=== PATIENT | female | born 1950 | race Hispanic/Latino ===

== ENCOUNTER 2021-08-19 17:13 | Observation (INO) | payer MEDICARE ==
[~2021-08-19] VITALS: Ht 170.2 cm; Wt 121.6 kg
[2021-08-19 18:08] LABS: BASOPHILS % 0.4 % (0.0-1.0); EOSINOPHILS # (AUTO) 0.1 (0.0-0.4); EOSINOPHILS % 1.4 % (0.0-6.0); HEMATOCRIT 43.7 % (34.2-44.1); HEMOGLOBIN 14.4 g/dL (12.0-16.0); LYMPHOCYTES # (AUTO) 1.7 (1.0-3.2); LYMPHOCYTES % 23.4 % (18.0-39.1); MEAN CORPUSCULAR HEMOGLOBIN 30.2 pg (28-32); MEAN CORPUSCULAR VOLUME 91.6 fL (81-99); MONOCYTES # (AUTO) 0.3 (0.2-0.8); MONOCYTES % 3.6 % (4.4-11.3); NEUTROPHILS # (AUTO) 5.1 (2.1-6.9); NEUTROPHILS % 70.6 % (38.7-80.0); PLATELET COUNT 204 x10e3/uL (140-360); RED BLOOD COUNT 4.77 x10e6/uL (3.6-5.1)
[2021-08-19 18:17] LABS: ALBUMIN 3.8 g/dL (3.5-5.0); ALBUMIN/GLOBULIN RATIO 0.9 (0.8-2.0); CALCIUM 9.3 mg/dL (8.4-10.2); CREATININE, SERUM 0.84 mg/dL (0.57-1.11)
[2021-08-19 18:24] LABS: CREATINE KINASE MB 1.5 ng/mL (0-5.0)
[2021-08-19] MEDS ORDERED: Morphine 4mg INJECTION 4 MG/ML INJ IV PRN (19:45)
[2021-08-19] MEDS ORDERED: DEXTROSE 50% SYRINGE 50 ML IV PRN (19:45)
[2021-08-19] MEDS ORDERED: ONDANSETRON HCL INJ 2MG/ML 2ML 2 MG/ML VIAL IV PRN (19:45)
[2021-08-19] MEDS: INSULIN REGULAR, HUMAN 100 UNIT/1 ML SQ SCH (21:00)
[2021-08-19 22:13] VITALS: BP 160/78
[2021-08-19 22:18] VITALS: BP 160/78
[2021-08-19] MEDS ORDERED: SYNTHROID125 MCG PO (22:55)
[2021-08-19] MEDS ORDERED: METFORMIN HCL500 MG PO (22:55)
[2021-08-19] MEDS ORDERED: LISINOPRIL-HCT1 EACH PO (22:55)
[2021-08-19] MEDS ORDERED: GLIMEPIRIDE2 MG PO (22:55)
[2021-08-20 00:21] VITALS: BP 164/81
[2021-08-20 02:52] LABS: CREATINE KINASE 65 IU/L (29-168)
[2021-08-20 04:00] VITALS: BP 158/77
[2021-08-20 07:18] VITALS: BP 158/77
[2021-08-20] MEDS: INSULIN REGULAR, HUMAN 100 UNIT/1 ML SQ SCH ×3 (07:30→16:30)
[2021-08-20 09:00] VITALS: BP 158/77
[2021-08-20] MEDS ORDERED: ASPIRIN 81 MG ENTERIC COATED PO SCH (09:00)
[2021-08-20] MEDS ORDERED: HYDRALAZINE HCL 20 MG/ML VIAL IV PRN (10:15)
[2021-08-20] MEDS ORDERED: HYDROCHLOROTHIAZIDE 25 MG TAB PO SCH (10:15)
[2021-08-20] MEDS ORDERED: LISINOPRIL 20 MG TAB PO SCH (10:45)
[2021-08-20] MEDS ORDERED: GLIMEPIRIDE 2 MG TAB PO SCH (11:00)
[2021-08-20 11:02] VITALS: BP 159/75
[2021-08-20 11:10] LABS: CREATINE KINASE MB 1.2 ng/mL (0-5.0)
[2021-08-20 11:25] LABS: CHOL/HDL RATIO 6.4 (3.0-3.6)
[2021-08-20] MEDS ORDERED: LEVOTHYROXINE SODIUM 125 MCG TAB PO SCH (12:45)
[2021-08-20] MEDS: METFORMIN HCL 500 MG TAB PO SCH ×2 (13:17→16:55)
[2021-08-20 15:18] VITALS: BP 157/74
[2021-08-20] MEDS ORDERED: METFORMIN HCL 500 MG TAB PO SCH (17:00)
[2021-08-21] MEDS ORDERED: LEVOTHYROXINE SODIUM 125 MCG TAB PO SCH (06:30)
== END 2021-08-20 17:36 | disposition home or self-care (01) ==
LOC: ER 17:58 → ERHOLD 21:14 → MED/SURG 21:49
PROVIDERS: ADMIT Internal Medicine; ATTEND Internal Medicine
DX: R07.2 Precordial pain (principal); I16.0 Hypertensive urgency; E78.5 Hyperlipidemia, unspecified; K21.9 Gastro-esophageal reflux disease without esophagitis; I10 Essential (primary) hypertension; E66.01 Morbid (severe) obesity due to excess calories; E11.9 Type 2 diabetes mellitus without complications; E03.9 Hypothyroidism, unspecified; Z68.41 Body mass index [BMI] 40.0-44.9, adult; Z20.822 Contact with and (suspected) exposure to COVID-19; Z79.84 Long term (current) use of oral hypoglycemic drugs
CPT/HCPCS: 36415; 71045; 80053; 80061; 82550 ×2; 82553 ×2; 82948 ×2; 83036; 84443; 84484 ×2; 85025; 93005; 93306; 99284; G0378 ×2; U0002

== ENCOUNTER 2024-03-31 15:02 | Inpatient (IN) | payer MEDICARE ==
[2024-03-31] VITALS (10 sets, daily range): BP systolic 87–155; BP diastolic 33–111; PULSE 99–108; RESP 18–27; TEMP 98.9–100.3; O2SAT 93–96
[~2024-03-31] VITALS: Ht 170.2 cm; Wt 140.0 kg
[~2024-03-31 15:02] MED LIST: GLIMEPIRIDE2 MG PO; LISINOPRIL-HCT1 EACH PO; METFORMIN HCL500 MG PO; SYNTHROID125 MCG PO
[2024-03-31 15:46] LABS: BASOPHILS % 0.4 % (0.0-1.0); HEMATOCRIT 40.8 % (34.2-44.1); HEMOGLOBIN 13.9 g/dL (12.0-16.0); LYMPHOCYTES # (AUTO) 0.4 (1.0-3.2); MEAN CORPUSCULAR HEMOGLOBIN 30.9 pg (28-32); MEAN CORPUSCULAR HGB CONC 34.1 g/dL (31-35); MEAN CORPUSCULAR VOLUME 90.7 fL (81-99); MONOCYTES % 0.2 % (4.4-11.3); NEUTROPHILS # (AUTO) 7.8 (2.1-6.9); PLATELET COUNT 210 x10e3/uL (140-360); RED CELL DISTRIBUTION WIDTH 12.8 % (11.7-14.4); WHITE BLOOD COUNT 8.28 x10e3/uL (4.8-10.8)
[2024-03-31] MEDS: ONDANSETRON HCL INJ 2MG/ML 2ML 2 MG/ML VIAL IV STA (15:47)
[2024-03-31] MEDS: SODIUM CHLORIDE 0.9% 1000ML 1,000 ML IV STA ×2 (15:47→17:13)
[2024-03-31 15:49] LABS: INR 1.02
[2024-03-31 15:50] LABS: PARTIAL THROMBOPLASTIN TIME 25.7 seconds (23.8-35.5)
[2024-03-31 15:54] LABS: CORONAVIRUS COVID-19 AG NEGATIVE (NEGATIVE); INFLUENZA A AG NEGATIVE (NEGATIVE); INFLUENZA B AG NEGATIVE (NEGATIVE)
[2024-03-31 16:02] LABS: ALANINE AMINOTRANSFERASE 206 IU/L (0-55); ALBUMIN 3.8 g/dL (3.5-5.0); ALKALINE PHOSPHATASE 168 IU/L (40-150); BILIRUBIN,TOTAL 3.4 mg/dL (0.2-1.2); BLOOD UREA NITROGEN 13 mg/dL (7-26); BUN/CREATININE RATIO 12 (6-25); CALCIUM 9.2 mg/dL (8.4-10.2); CARBON DIOXIDE 21 mmol/L (22-29); CHLORIDE 94 mmol/L (98-107); CREATINE KINASE 100 IU/L (29-168); CREATININE, SERUM 1.05 mg/dL (0.57-1.11); EST GLOMERULAR FILTRATION RATE 56 ML/MIN (>=60); GLUCOSE 340 mg/dL (74-118); SODIUM 133 mmol/L (136-145); TOTAL PROTEIN 7.5 g/dL (6.5-8.1)
[2024-03-31 16:07] LABS: MAGNESIUM 0.9 MG/DL (1.3-2.1)
[2024-03-31 16:09] LABS: TROPONIN I < 0.001 ng/mL (0-0.300)
[2024-03-31] MEDS: ACETAMINOPHEN 1000 MG/100 ML IV STA (16:09)
[2024-03-31] MEDS: Morphine 4mg INJECTION 4 MG/ML INJ IV ONE (16:10)
[2024-03-31 16:19] LABS: B-TYPE NATRIURETIC PEPTIDE2 58.1 pg/mL (0-100)
[2024-03-31 16:29] LABS: LIPASE 2345 U/L (8-78)
[2024-03-31] MEDS: MAGNESIUM SULFATE 2GM/50ML 50 ML IV ONE ×2 (17:12→23:12)
[2024-03-31] MEDS ORDERED: HYDROMORPHONE 1MG/1ML INJ ONE (17:23)
[2024-03-31] MEDS: HYDROMORPHONE 1MG/1ML INJ IV PRN (17:27)
[2024-03-31] MEDS: METRONIDAZOLE 500MG/NS 100ML 100 ML IV SCH (18:31)
[2024-03-31] MEDS ORDERED: IOPAMIDOL 370 MG/ML 100 ML INFUS..BTL INJ ONE (18:37)
[2024-03-31] MEDS ORDERED: SODIUM CHLORIDE 0.9% 100 ML ONE (18:37)
[2024-03-31] MEDS: SODIUM CHLORIDE 0.9% 1000ML 1,000 ML IV SCH (19:43)
[2024-03-31] MEDS ORDERED: DEXTROSE 50% SYRINGE 50 ML IV PRN ×2 (19:45→22:30)
[2024-03-31] MEDS ORDERED: INSULIN LISPRO 100 UNIT/1 ML 3ML VIAL SQ SCH (21:00)
[2024-03-31] MEDS: ONDANSETRON HCL INJ 2MG/ML 2ML 2 MG/ML VIAL IV PRN (22:33)
[2024-04-01] VITALS (37 sets, daily range): BP systolic 79–121; BP diastolic 45–62; PULSE 82–102; RESP 15–26; TEMP 97.7–98.7; O2SAT 90–100
[2024-04-01] MEDS: INSULIN REGULAR, HUMAN 100 UNIT/1 ML SQ SCH (01:37)
[2024-04-01 06:58] LABS: BASOPHILS # (AUTO) 0.1 (0.0-0.1); BASOPHILS % 0.3 % (0.0-1.0); EOSINOPHILS # (AUTO) 5.3 (0.0-0.4); EOSINOPHILS % 23.4 % (0.0-6.0); HEMATOCRIT 33.4 % (34.2-44.1); HEMOGLOBIN 11.2 g/dL (12.0-16.0); LYMPHOCYTES # (AUTO) 0.2 (1.0-3.2); LYMPHOCYTES % 0.9 % (18.0-39.1); MEAN CORPUSCULAR HEMOGLOBIN 30.7 pg (28-32); MEAN CORPUSCULAR HGB CONC 33.5 g/dL (31-35); MEAN CORPUSCULAR VOLUME 91.5 fL (81-99); MONOCYTES # (AUTO) 0.7 (0.2-0.8); MONOCYTES % 3.2 % (4.4-11.3); NEUTROPHILS # (AUTO) 15.3 (2.1-6.9); NEUTROPHILS % 68.2 % (38.7-80.0); PLATELET COUNT 150 x10e3/uL (140-360); RED BLOOD COUNT 3.65 x10e6/uL (3.6-5.1); RED CELL DISTRIBUTION WIDTH 13.5 % (11.7-14.4); WHITE BLOOD COUNT 22.45 x10e3/uL (4.8-10.8)
[2024-04-01 07:23] LABS: ALBUMIN 2.7 g/dL (3.5-5.0); BILIRUBIN,TOTAL 5.3 mg/dL (0.2-1.2); CALCIUM 7.6 mg/dL (8.4-10.2); CREATININE, SERUM 2.03 mg/dL (0.57-1.11); MAGNESIUM 1.7 MG/DL (1.3-2.1); TOTAL PROTEIN 5.4 g/dL (6.5-8.1)
[2024-04-01 07:44] LABS: CHOL/HDL RATIO 8.2 (3.0-3.6)
[2024-04-01 07:54] LABS: TROPONIN I 0.02 ng/mL (0-0.300)
[2024-04-01 08:07] LABS: THYROID STIMULATING HORMONE 1.292 uIU/mL (0.350-4.940)
[2024-04-01] MEDS: INSULIN GLARGINE 100 UNITS/ML VIAL SQ SCH (08:09)
[2024-04-01] MEDS: SODIUM CHLORIDE 0.9% 1000ML 1,000 ML IV ONE (08:19)
[2024-04-01 11:01] LABS: BAND NEUTROPHILS % (MANUAL) 4 %; LYMPHOCYTES % (MANUAL) 1 % (19-48); METAMYELOCYTES % (MANUAL) 3 % (0-0); MONOCYTES % (MANUAL) 2 % (3.4-9.0); MYELOCYTES % (MANUAL) 4 % (0-0); NEUTROPHILS % (MANUAL) 84 % (40-74); PLATELET ESTIMATE ADEQUATE; PLATELET MORPHOLOGY COMMENT NORMAL; RBC MORPHOLOGY COMMENT NORMAL; REACTIVE LYMPHOCYTES 2
[2024-04-01] MEDS ORDERED: LIDOCAINE HCL 1% 30ML-PF VIAL ONE (11:44)
[2024-04-01] MEDS: NOREPINEPHRINE 8 MG/D5W 250 ML 250 ML IV SCH (11:54)
[2024-04-01 12:08] LABS: TROPONIN I 0.015 ng/mL (0-0.300)
[2024-04-01] MEDS: ENOXAPARIN SOD INJ 40 MG/0.4 ML SYR SC SCH (16:05)
[2024-04-01 17:55] LABS: ABG HCO3 17 mmol/L (22-26); ABG PCO2 35 mmHg (35-45); ABG PH 7.29 (7.35-7.45); ABG PO2 97 mmHg (80-105); ABG TCO2 18
[2024-04-01 18:29] LABS: CREATININE,URINE RANDOM 23.98 mg/dL (47-110); TOTAL PROTEIN, URINE 75.1 mg/dL (1-14)
[2024-04-01] MEDS: LACTATED RINGER'S 1,000 ML INJ SCH (18:47)
[2024-04-01] MEDS: POTASSIUM CHLORIDE 20MEQ/100ML 100 ML IV SCH (18:49)
[2024-04-01 19:50] LABS: EOSINOPHIL SMEAR,URINE NONE SEEN (NONE SEEN)
[2024-04-02] VITALS (67 sets, daily range): BP systolic 73–155; BP diastolic 44–133; PULSE 78–101; RESP 11–25; TEMP 98.3–99.3; O2SAT 94–100
[2024-04-02 02:22] LABS: CLARITY,URINE TURBID (CLEAR); COLOR,URINE YELLOW (YELLOW); GLUCOSE, URINE NEGATIVE (NEGATIVE); KETONES,URINE TRACE (NEGATIVE); LEUKOCYTE ESTERASE ,URINE NEGATIVE (NEGATIVE); NITRITE,URINE NEGATIVE (NEGATIVE); PH,URINE 5 (5 - 7); PROTEIN,URINE DIPSTICK 2+ (NEGATIVE)
[2024-04-02 02:23] LABS: BILIRUBIN,URINE MODERATE (NEGATIVE); URINE UROBILINOGEN 1 mg/dL (0.2 - 1)
[2024-04-02 02:26] LABS: BACTERIA,URINE MANY /HPF; EPITHELIAL CELLS,URINE MODERATE /LPF; RBC,URINE >50 /HPF (0-5); TRANSITIONAL EPI CELLS,URINE FEW; WBC,URINE (MAN) 21-50 /HPF (0-5)
[2024-04-02 02:27] LABS: RENAL EPITHELIAL CELLS,URINE FEW
[2024-04-02 04:03] LABS: CREATININE,URINE RANDOM 100.36 mg/dL (47-110); TOTAL PROTEIN, URINE 179.9 mg/dL (1-14)
[2024-04-02 05:17] LABS: BASOPHILS # (AUTO) 0.1 (0.0-0.1); BASOPHILS % 0.6 % (0.0-1.0); EOSINOPHILS # (AUTO) 4.9 (0.0-0.4); EOSINOPHILS % 23.7 % (0.0-6.0); HEMATOCRIT 30.1 % (34.2-44.1); HEMOGLOBIN 10.1 g/dL (12.0-16.0); LYMPHOCYTES # (AUTO) 0.4 (1.0-3.2); MEAN CORPUSCULAR HEMOGLOBIN 30.8 pg (28-32); MEAN CORPUSCULAR HGB CONC 33.6 g/dL (31-35); MEAN CORPUSCULAR VOLUME 91.8 fL (81-99); MONOCYTES # (AUTO) 0.7 (0.2-0.8); MONOCYTES % 3.4 % (4.4-11.3); NEUTROPHILS # (AUTO) 12.1 (2.1-6.9); NEUTROPHILS % 58.8 % (38.7-80.0); PLATELET COUNT 103 x10e3/uL (140-360); RED BLOOD COUNT 3.28 x10e6/uL (3.6-5.1); RED CELL DISTRIBUTION WIDTH 14.1 % (11.7-14.4); WHITE BLOOD COUNT 20.58 x10e3/uL (4.8-10.8)
[2024-04-02 05:48] LABS: ALBUMIN 2.2 g/dL (3.5-5.0); ALBUMIN/GLOBULIN RATIO 0.9 (0.8-2.0); ANION GAP 18.5 mmol/L (8-16); BILIRUBIN,TOTAL 4.1 mg/dL (0.2-1.2); CALCIUM 7.1 mg/dL (8.4-10.2); CREATININE, SERUM 2.75 mg/dL (0.57-1.11); MAGNESIUM 1.5 MG/DL (1.3-2.1); PHOSPHORUS 3.5 MG/DL (2.3-4.7); POTASSIUM 4.5 mmol/L (3.5-5.1); TOTAL PROTEIN 4.6 g/dL (6.5-8.1)
[2024-04-02] MEDS: LEVOTHYROXINE SODIUM 125 MCG TAB PO SCH (07:30)
[2024-04-02 12:53] LABS: BAND NEUTROPHILS % (MANUAL) 22 %; LYMPHOCYTES % (MANUAL) 6 % (19-48); METAMYELOCYTES % (MANUAL) 3 % (0-0); MONOCYTES % (MANUAL) 5 % (3.4-9.0); NEUTROPHILS % (MANUAL) 64 % (40-74); PLATELET ESTIMATE SLIGHTLY DECREASED; PLATELET MORPHOLOGY COMMENT NORMAL; RBC MORPHOLOGY COMMENT NORMAL
[2024-04-02] MEDS: MAGNESIUM SULFATE 2GM/50ML 50 ML IV ONE (17:37)
[2024-04-02] MEDS: SODIUM BICARBONATE 8.4% VIAL 50 ML in SODIUM CHLORIDE 0.45% 1,000 ML IV ONE (18:12)
[2024-04-03] VITALS (30 sets, daily range): BP systolic 84–119; BP diastolic 42–81; PULSE 71–80; RESP 12–20; TEMP 96.8–98.4; O2SAT 94–98
[2024-04-03] MEDS ORDERED: METOCLOPRAMIDE HCL 10 MG/2ML VIAL IV SCH (06:00)
[2024-04-03 07:01] LABS: BASOPHILS # (AUTO) 0.1 (0.0-0.1); BASOPHILS % 0.4 % (0.0-1.0); EOSINOPHILS # (AUTO) 0.1 (0.0-0.4); EOSINOPHILS % 0.4 % (0.0-6.0); HEMATOCRIT 27.5 % (34.2-44.1); HEMOGLOBIN 9.1 g/dL (12.0-16.0); LYMPHOCYTES # (AUTO) 0.5 (1.0-3.2); LYMPHOCYTES % 2.9 % (18.0-39.1); MEAN CORPUSCULAR HGB CONC 33.1 g/dL (31-35); MEAN CORPUSCULAR VOLUME 90.8 fL (81-99); MONOCYTES # (AUTO) 0.5 (0.2-0.8); MONOCYTES % 2.9 % (4.4-11.3); NEUTROPHILS # (AUTO) 14.5 (2.1-6.9); NEUTROPHILS % 92.8 % (38.7-80.0); PLATELET COUNT 91 x10e3/uL (140-360); RED BLOOD COUNT 3.03 x10e6/uL (3.6-5.1); RED CELL DISTRIBUTION WIDTH 14.5 % (11.7-14.4); WHITE BLOOD COUNT 15.59 x10e3/uL (4.8-10.8)
[2024-04-03 07:32] LABS: ALBUMIN 1.8 g/dL (3.5-5.0); ALBUMIN/GLOBULIN RATIO 0.8 (0.8-2.0); ANION GAP 17.3 mmol/L (8-16); BILIRUBIN,TOTAL 2.4 mg/dL (0.2-1.2); CALCIUM 7.4 mg/dL (8.4-10.2); CREATININE, SERUM 3.45 mg/dL (0.57-1.11); POTASSIUM 4.3 mmol/L (3.5-5.1); TOTAL PROTEIN 4.2 g/dL (6.5-8.1)
[2024-04-03 09:00] LABS: LYMPHOCYTES % (MANUAL) 4 % (19-48); MONOCYTES % (MANUAL) 4 % (3.4-9.0); NEUTROPHILS % (MANUAL) 92 % (40-74)
[2024-04-03 09:01] LABS: PLATELET ESTIMATE MODERATELY DECREASED; PLATELET MORPHOLOGY COMMENT NORMAL; RBC MORPHOLOGY COMMENT NORMAL
[2024-04-03] MEDS: CALCIUM GLUC 1 G/50 ML NACL 50 ML IV ONE (09:47)
[2024-04-03] MEDS: METOCLOPRAMIDE HCL 10 MG/2ML VIAL IV SCH (09:48)
[2024-04-03] MEDS: MUPIROCIN 2% OINT 22 GM TUBE TOP SCH (14:22)
[2024-04-03] MEDS: CEFAZOLIN SODIUM 2 GM in SODIUM CHLORIDE 0.9% 100 ML IV SCH (14:22)
[2024-04-03] MEDS: INSULIN GLARGINE 100 UNITS/ML VIAL SQ SCH (16:53)
[2024-04-03] MEDS: DEXTROSE 5%/LACTATED RINGERS 1,000 ML IV SCH (17:49)
[2024-04-04] VITALS (42 sets, daily range): BP systolic 70–142; BP diastolic 44–76; PULSE 65–82; RESP 12–23; TEMP 97.7–98.6; O2SAT 92–100
[2024-04-04 07:34] LABS: BASOPHILS # (AUTO) 0.1 (0.0-0.1); BASOPHILS % 0.6 % (0.0-1.0); EOSINOPHILS # (AUTO) 0.2 (0.0-0.4); EOSINOPHILS % 1.2 % (0.0-6.0); HEMATOCRIT 26.6 % (34.2-44.1); HEMOGLOBIN 8.7 g/dL (12.0-16.0); LYMPHOCYTES # (AUTO) 0.6 (1.0-3.2); LYMPHOCYTES % 4.1 % (18.0-39.1); MEAN CORPUSCULAR HEMOGLOBIN 30.4 pg (28-32); MEAN CORPUSCULAR HGB CONC 32.7 g/dL (31-35); MONOCYTES # (AUTO) 0.5 (0.2-0.8); MONOCYTES % 3.8 % (4.4-11.3); NEUTROPHILS % 88.5 % (38.7-80.0); PLATELET COUNT 89 x10e3/uL (140-360); RED BLOOD COUNT 2.86 x10e6/uL (3.6-5.1); RED CELL DISTRIBUTION WIDTH 14.4 % (11.7-14.4); WHITE BLOOD COUNT 13.56 x10e3/uL (4.8-10.8)
[2024-04-04 08:42] LABS: ALBUMIN/GLOBULIN RATIO 0.6 (0.8-2.0); ANION GAP 16.4 mmol/L (8-16); BILIRUBIN,TOTAL 2.4 mg/dL (0.2-1.2); CALCIUM 8.2 mg/dL (8.4-10.2); CREATININE, SERUM 5.42 mg/dL (0.57-1.11); POTASSIUM 4.4 mmol/L (3.5-5.1); TOTAL PROTEIN 5.2 g/dL (6.5-8.1)
[2024-04-04] MEDS: ALBUMIN 25% 12.5GM 0.25 GM/ML BTL IV SCH (12:37)
[2024-04-04] MEDS: FUROSEMIDE INJ 10 MG/ML 4 ML VIAL IV ONE (14:36)
[2024-04-04] MEDS: LACTATED RINGER'S 1,000 ML INJ SCH (20:28)
[2024-04-04] MEDS: CENTRAL TPN FORMULA 1 BAG IV SCH (20:29)
[2024-04-04] MEDS: INSULIN GLARGINE 100 UNITS/ML VIAL SQ SCH (21:53)
[2024-04-05] VITALS (22 sets, daily range): BP systolic 118–157; BP diastolic 48–70; PULSE 66–77; RESP 15–22; TEMP 97.6–98.6; O2SAT 92–98
[2024-04-05 07:12] LABS: BASOPHILS % 0.3 % (0.0-1.0); EOSINOPHILS # (AUTO) 0.2 (0.0-0.4); EOSINOPHILS % 1.7 % (0.0-6.0); HEMOGLOBIN 10.1 g/dL (12.0-16.0); LYMPHOCYTES # (AUTO) 0.7 (1.0-3.2); LYMPHOCYTES % 6.9 % (18.0-39.1); MEAN CORPUSCULAR HGB CONC 33.7 g/dL (31-35); MONOCYTES # (AUTO) 0.7 (0.2-0.8); MONOCYTES % 6.8 % (4.4-11.3); NEUTROPHILS # (AUTO) 8.8 (2.1-6.9); NEUTROPHILS % 82.4 % (38.7-80.0); PLATELET COUNT 98 x10e3/uL (140-360); RED BLOOD COUNT 3.37 x10e6/uL (3.6-5.1); RED CELL DISTRIBUTION WIDTH 14.1 % (11.7-14.4)
[2024-04-05 07:25] LABS: ALBUMIN 2.4 g/dL (3.5-5.0); ALBUMIN/GLOBULIN RATIO 0.8 (0.8-2.0); BILIRUBIN,TOTAL 1.8 mg/dL (0.2-1.2); CALCIUM 8.5 mg/dL (8.4-10.2); CREATININE, SERUM 5.96 mg/dL (0.57-1.11); POTASSIUM 4.2 mmol/L (3.5-5.1); TOTAL PROTEIN 5.4 g/dL (6.5-8.1)
[2024-04-05 07:45] LABS: ANION GAP 16.2 mmol/L (8-16)
[2024-04-05] MEDS ORDERED: LIDOCAINE 4% PATCH TP SCH (09:15)
[2024-04-05] MEDS ORDERED: BISACODYL 10 MG SUPP PR PRN (09:15)
[2024-04-05] MEDS ORDERED: MAGNESIUM HYDROXIDE 30 ML UDC PO PRN (09:15)
[2024-04-05] MEDS ORDERED: HYDROCODONE/APAP 10MG-325MG TAB PO SCH (09:15)
[2024-04-05] MEDS ORDERED: HYDROCODONE/APAP 10MG-325MG TAB PO PRN (10:15)
[2024-04-05] MEDS: GABAPENTIN 100 MG CAP PO SCH ×2 (10:18→17:19)
[2024-04-05] MEDS: SENNA-S TABLET PO SCH (10:18)
[2024-04-05] MEDS: LIDOCAINE 4% PATCH TP SCH (10:18)
[2024-04-05] MEDS ORDERED: GABAPENTIN 100 MG CAP PO SCH (14:00)
[2024-04-05] MEDS: FUROSEMIDE INJ 10 MG/ML 4 ML VIAL IV ONE (14:51)
[2024-04-05] MEDS: CENTRAL TPN FORMULA 1 BAG IV SCH (20:14)
[2024-04-06] VITALS (35 sets, daily range): BP systolic 116–162; BP diastolic 50–137; PULSE 66–76; RESP 11–22; TEMP 97.7–98.6; O2SAT 93–100
[2024-04-06 06:51] LABS: ANION GAP 16.4 mmol/L (8-16); CALCIUM 8.4 mg/dL (8.4-10.2); CREATININE, SERUM 6.22 mg/dL (0.57-1.11); MAGNESIUM 2.4 MG/DL (1.3-2.1); PHOSPHORUS 4.1 MG/DL (2.3-4.7); POTASSIUM 4.4 mmol/L (3.5-5.1)
[2024-04-06 09:18] LABS: ABG HCO3 17 mmol/L (22-26); ABG PCO2 35 mmHg (35-45); ABG PH 7.29 (7.35-7.45); ABG PO2 97 mmHg (80-105); ABG TCO2 18
[2024-04-06] MEDS: ENOXAPARIN SODIUM INJ 100 MG/ML SYR SC SCH (12:37)
[2024-04-06] MEDS ORDERED: LIDOCAINE HCL 1% 30ML-PF VIAL ONE (12:50)
[2024-04-06] MEDS ORDERED: HEPARIN SOD (PORCINE) 1000 UNIT/ML SDV ONE (14:01)
[2024-04-06] MEDS: HYDROMORPHONE 1MG/1ML INJ IV PRN (14:36)
[2024-04-06] MEDS ORDERED: HEPARIN SOD (PORCINE) 1000 UNIT/ML SDV IV PRN (18:45)
[2024-04-06] MEDS ORDERED: SODIUM CHLORIDE 0.9% 1000ML 2,000 ML IV PRN (18:45)
[2024-04-06] MEDS ORDERED: MANNITOL 25% 12.5GM/50 ML VIAL IV PRN (18:45)
[2024-04-06] MEDS: CENTRAL TPN FORMULA 1 BAG IV SCH (19:37)
[2024-04-07] VITALS (28 sets, daily range): BP systolic 130–174; BP diastolic 50–90; PULSE 70–90; RESP 6–25; TEMP 97.6–98.9; O2SAT 88–99
[2024-04-07 08:06] LABS: ANION GAP 15.2 mmol/L (8-16); CALCIUM 8.3 mg/dL (8.4-10.2); CREATININE, SERUM 4.84 mg/dL (0.57-1.11); MAGNESIUM 2.3 MG/DL (1.3-2.1); PHOSPHORUS 3.8 MG/DL (2.3-4.7); POTASSIUM 4.2 mmol/L (3.5-5.1)
[2024-04-07] MEDS ORDERED: HEPARIN SOD (PORCINE) 1000 UNIT/ML SDV IV PRN (09:45)
[2024-04-07] MEDS: HEPARIN SOD (PORCINE) 5,000 UNIT/ML VIAL ONE (11:11)
[2024-04-07] MEDS: MANNITOL 25% 12.5GM/50ML 50 ML ONE ×2 (11:12→11:13)
[2024-04-07] MEDS: HEPARIN SOD (PORCINE) 1000 UNIT/ML SDV ONE (11:12)
[2024-04-07] MEDS: SODIUM CHLORIDE 0.9% 1000ML 2,000 ML ONE (11:15)
[2024-04-07] MEDS: NYSTATIN 15 GM POWDER UD BTL TOP SCH (18:14)
[2024-04-07] MEDS: CENTRAL TPN FORMULA 1 BAG IV SCH (19:41)
[2024-04-07] MEDS: HYDRALAZINE HCL 20 MG/ML VIAL IV PRN (19:47)
[2024-04-08] VITALS (19 sets, daily range): BP systolic 138–197; BP diastolic 52–146; PULSE 77–95; RESP 17–30; TEMP 98.2–99.7; O2SAT 93–99
[2024-04-08 07:14] LABS: BASOPHILS % 0.3 % (0.0-1.0); EOSINOPHILS # (AUTO) 0.2 (0.0-0.4); EOSINOPHILS % 1.5 % (0.0-6.0); HEMATOCRIT 30.6 % (34.2-44.1); LYMPHOCYTES # (AUTO) 0.7 (1.0-3.2); LYMPHOCYTES % 6.9 % (18.0-39.1); MEAN CORPUSCULAR HEMOGLOBIN 29.4 pg (28-32); MEAN CORPUSCULAR HGB CONC 32.7 g/dL (31-35); MONOCYTES # (AUTO) 0.5 (0.2-0.8); MONOCYTES % 5.3 % (4.4-11.3); NEUTROPHILS # (AUTO) 8.3 (2.1-6.9); NEUTROPHILS % 81.4 % (38.7-80.0); PLATELET COUNT 157 x10e3/uL (140-360); RED CELL DISTRIBUTION WIDTH 13.6 % (11.7-14.4); WHITE BLOOD COUNT 10.15 x10e3/uL (4.8-10.8)
[2024-04-08 07:40] LABS: ALBUMIN 2.1 g/dL (3.5-5.0); ALBUMIN/GLOBULIN RATIO 0.6 (0.8-2.0); ALKALINE PHOSPHATASE 264 IU/L (40-150); ANION GAP 13.2 mmol/L (8-16); BLOOD UREA NITROGEN 48 mg/dL (7-26); BUN/CREATININE RATIO 12 (6-25); CALCIUM 8.4 mg/dL (8.4-10.2); CARBON DIOXIDE 24 mmol/L (22-29); CHLORIDE 102 mmol/L (98-107); CREATININE, SERUM 3.87 mg/dL (0.57-1.11); EST GLOMERULAR FILTRATION RATE 12 ML/MIN (>=60); GLUCOSE 177 mg/dL (74-118); PHOSPHORUS 3.7 MG/DL (2.3-4.7); POTASSIUM 4.2 mmol/L (3.5-5.1); SODIUM 135 mmol/L (136-145); TOTAL PROTEIN 5.4 g/dL (6.5-8.1)
[2024-04-08 07:44] LABS: ALANINE AMINOTRANSFERASE < 6 IU/L (0-55)
[2024-04-08] MEDS: BENZONATATE 100 MG CAP PO PRN (20:46)
[2024-04-09] VITALS (8 sets, daily range): BP systolic 149–160; BP diastolic 51–65; PULSE 81–90; RESP 17–27; TEMP 97.9–98.4; O2SAT 97–100
[2024-04-09] MEDS: CENTRAL TPN FORMULA 1 BAG IV SCH (02:44)
[2024-04-09 06:52] LABS: BASOPHILS % 0.2 % (0.0-1.0); EOSINOPHILS # (AUTO) 0.1 (0.0-0.4); EOSINOPHILS % 1.3 % (0.0-6.0); HEMATOCRIT 31.4 % (34.2-44.1); HEMOGLOBIN 10.2 g/dL (12.0-16.0); LYMPHOCYTES # (AUTO) 0.5 (1.0-3.2); LYMPHOCYTES % 5.4 % (18.0-39.1); MEAN CORPUSCULAR HEMOGLOBIN 29.9 pg (28-32); MEAN CORPUSCULAR HGB CONC 32.5 g/dL (31-35); MEAN CORPUSCULAR VOLUME 92.1 fL (81-99); MONOCYTES # (AUTO) 0.5 (0.2-0.8); MONOCYTES % 5.1 % (4.4-11.3); NEUTROPHILS # (AUTO) 7.4 (2.1-6.9); NEUTROPHILS % 84.4 % (38.7-80.0); PLATELET COUNT 190 x10e3/uL (140-360); RED BLOOD COUNT 3.41 x10e6/uL (3.6-5.1); RED CELL DISTRIBUTION WIDTH 13.7 % (11.7-14.4); WHITE BLOOD COUNT 8.78 x10e3/uL (4.8-10.8)
[2024-04-09 07:21] LABS: ALBUMIN 2.2 g/dL (3.5-5.0); ALBUMIN/GLOBULIN RATIO 0.6 (0.8-2.0); ALKALINE PHOSPHATASE 268 IU/L (40-150); ANION GAP 13.5 mmol/L (8-16); BILIRUBIN,TOTAL 0.9 mg/dL (0.2-1.2); BLOOD UREA NITROGEN 51 mg/dL (7-26); BUN/CREATININE RATIO 13 (6-25); CALCIUM 8.3 mg/dL (8.4-10.2); CARBON DIOXIDE 25 mmol/L (22-29); CHLORIDE 102 mmol/L (98-107); CREATININE, SERUM 3.79 mg/dL (0.57-1.11); EST GLOMERULAR FILTRATION RATE 12 ML/MIN (>=60); GLUCOSE 164 mg/dL (74-118); POTASSIUM 4.5 mmol/L (3.5-5.1); SODIUM 136 mmol/L (136-145); TOTAL PROTEIN 5.6 g/dL (6.5-8.1)
[2024-04-09 07:29] LABS: ALANINE AMINOTRANSFERASE < 6 IU/L (0-55)
[2024-04-09 15:39] LABS: HEPATITIS B CORE AB TOTAL Negative; HEPATITIS B SURFACE AB QUANT <3.5; HEPATITIS B SURFACE AG (P) Negative
[2024-04-10] VITALS (11 sets, daily range): BP systolic 133–159; BP diastolic 54–66; PULSE 71–97; RESP 18–22; TEMP 97.6–98.6; O2SAT 95–100
[2024-04-10 05:39] LABS: BASOPHILS % 0.3 % (0.0-1.0); EOSINOPHILS # (AUTO) 0.1 (0.0-0.4); EOSINOPHILS % 1.6 % (0.0-6.0); HEMATOCRIT 29.9 % (34.2-44.1); HEMOGLOBIN 9.9 g/dL (12.0-16.0); LYMPHOCYTES # (AUTO) 0.6 (1.0-3.2); LYMPHOCYTES % 8.3 % (18.0-39.1); MEAN CORPUSCULAR HEMOGLOBIN 30.1 pg (28-32); MEAN CORPUSCULAR HGB CONC 33.1 g/dL (31-35); MEAN CORPUSCULAR VOLUME 90.9 fL (81-99); MONOCYTES # (AUTO) 0.4 (0.2-0.8); MONOCYTES % 6.3 % (4.4-11.3); NEUTROPHILS # (AUTO) 5.7 (2.1-6.9); NEUTROPHILS % 80.8 % (38.7-80.0); PLATELET COUNT 206 x10e3/uL (140-360); RED BLOOD COUNT 3.29 x10e6/uL (3.6-5.1); RED CELL DISTRIBUTION WIDTH 13.7 % (11.7-14.4); WHITE BLOOD COUNT 7.01 x10e3/uL (4.8-10.8)
[2024-04-10 06:52] LABS: ALBUMIN 2.3 g/dL (3.5-5.0); ALBUMIN/GLOBULIN RATIO 0.7 (0.8-2.0); ANION GAP 15.6 mmol/L (8-16); BILIRUBIN,TOTAL 0.7 mg/dL (0.2-1.2); CALCIUM 8.1 mg/dL (8.4-10.2); CREATININE, SERUM 3.52 mg/dL (0.57-1.11); POTASSIUM 4.6 mmol/L (3.5-5.1); TOTAL PROTEIN 5.5 g/dL (6.5-8.1)
[2024-04-11] VITALS (11 sets, daily range): BP systolic 142–171; BP diastolic 59–68; PULSE 77–92; RESP 16–22; TEMP 97.6–98.7; O2SAT 96–100
[2024-04-11 07:56] LABS: ANION GAP 14.8 mmol/L (8-16); CALCIUM 8.4 mg/dL (8.4-10.2); CREATININE, SERUM 2.95 mg/dL (0.57-1.11); POTASSIUM 4.8 mmol/L (3.5-5.1)
[2024-04-11] MEDS: INSULIN REGULAR, HUMAN 100 UNIT/1 ML SQ SCH (11:30)
[2024-04-11] MEDS: GUAIFENESIN 600 MG TAB PO PRN (12:07)
[2024-04-11] MEDS: METOCLOPRAMIDE HCL 10 MG TAB PO SCH (12:07)
[2024-04-11] MEDS: ENOXAPARIN SODIUM INJ 100 MG/ML SYR SC SCH (12:08)
[2024-04-11] MEDS: INSULIN GLARGINE 100 UNITS/ML VIAL SQ SCH (16:53)
[2024-04-12] VITALS (13 sets, daily range): BP systolic 128–158; BP diastolic 48–69; PULSE 71–84; RESP 16–21; TEMP 98.1–99; O2SAT 96–100
[2024-04-12] MEDS: ALBUTEROL/IPRATROPIUM 3 ML NEB ONE (00:35)
[2024-04-12] MEDS: ALBUTEROL/IPRATROPIUM 3 ML NEB NEB PRN (07:52)
[2024-04-13] VITALS (10 sets, daily range): BP systolic 143–171; BP diastolic 59–70; PULSE 74–86; RESP 17–22; TEMP 98.6–99.3; O2SAT 80–100
[2024-04-13 05:41] LABS: BASOPHILS % 0.4 % (0.0-1.0); EOSINOPHILS # (AUTO) 0.1 (0.0-0.4); EOSINOPHILS % 2.3 % (0.0-6.0); HEMATOCRIT 30.6 % (34.2-44.1); HEMOGLOBIN 9.7 g/dL (12.0-16.0); LYMPHOCYTES # (AUTO) 0.9 (1.0-3.2); LYMPHOCYTES % 16.3 % (18.0-39.1); MEAN CORPUSCULAR HEMOGLOBIN 29.7 pg (28-32); MEAN CORPUSCULAR HGB CONC 31.7 g/dL (31-35); MEAN CORPUSCULAR VOLUME 93.6 fL (81-99); MONOCYTES # (AUTO) 0.3 (0.2-0.8); NEUTROPHILS # (AUTO) 4.2 (2.1-6.9); NEUTROPHILS % 75.5 % (38.7-80.0); PLATELET COUNT 283 x10e3/uL (140-360); RED BLOOD COUNT 3.27 x10e6/uL (3.6-5.1); RED CELL DISTRIBUTION WIDTH 13.3 % (11.7-14.4)
[2024-04-13 06:20] LABS: ALBUMIN 2.6 g/dL (3.5-5.0); ALBUMIN/GLOBULIN RATIO 0.8 (0.8-2.0); ANION GAP 15.1 mmol/L (8-16); BILIRUBIN,TOTAL 0.8 mg/dL (0.2-1.2); CALCIUM 8.5 mg/dL (8.4-10.2); CREATININE, SERUM 2.19 mg/dL (0.57-1.11); POTASSIUM 5.1 mmol/L (3.5-5.1)
[2024-04-13] MEDS: MAGNESIUM HYDROXIDE 30 ML UDC PO PRN (10:11)
[2024-04-13] MEDS: SENNA-S TABLET PO SCH (10:11)
[2024-04-13] MEDS: NIFEDIPINE CR 30 MG TAB PO ONE (10:14)
[2024-04-14] VITALS (10 sets, daily range): BP systolic 131–155; BP diastolic 53–76; PULSE 74–81; RESP 18–20; TEMP 98–98.6; O2SAT 94–100
[2024-04-14] MEDS: NIFEDIPINE CR 30 MG TAB PO SCH (06:14)
[2024-04-14 06:19] LABS: BASOPHILS % 0.4 % (0.0-1.0); EOSINOPHILS # (AUTO) 0.1 (0.0-0.4); EOSINOPHILS % 2.6 % (0.0-6.0); HEMATOCRIT 29.7 % (34.2-44.1); HEMOGLOBIN 9.6 g/dL (12.0-16.0); LYMPHOCYTES # (AUTO) 0.9 (1.0-3.2); LYMPHOCYTES % 19.6 % (18.0-39.1); MEAN CORPUSCULAR HEMOGLOBIN 29.6 pg (28-32); MEAN CORPUSCULAR HGB CONC 32.3 g/dL (31-35); MEAN CORPUSCULAR VOLUME 91.7 fL (81-99); MONOCYTES # (AUTO) 0.3 (0.2-0.8); MONOCYTES % 6.3 % (4.4-11.3); NEUTROPHILS # (AUTO) 3.2 (2.1-6.9); NEUTROPHILS % 70.7 % (38.7-80.0); PLATELET COUNT 323 x10e3/uL (140-360); RED BLOOD COUNT 3.24 x10e6/uL (3.6-5.1); RED CELL DISTRIBUTION WIDTH 13.2 % (11.7-14.4); WHITE BLOOD COUNT 4.59 x10e3/uL (4.8-10.8)
[2024-04-14 06:50] LABS: ANION GAP 13.5 mmol/L (8-16); CALCIUM 8.6 mg/dL (8.4-10.2); CREATININE, SERUM 1.56 mg/dL (0.57-1.11); POTASSIUM 4.5 mmol/L (3.5-5.1)
[2024-04-15] VITALS (10 sets, daily range): BP systolic 136–152; BP diastolic 53–69; PULSE 72–98; RESP 16–18; TEMP 97.6–98.6; O2SAT 92–100
[2024-04-15] MEDS: HYDROCODONE/APAP 10MG-325MG TAB PO PRN (04:21)
[2024-04-15 05:53] LABS: ANION GAP 16.5 mmol/L (8-16); CALCIUM 8.9 mg/dL (8.4-10.2); CREATININE, SERUM 1.37 mg/dL (0.57-1.11); POTASSIUM 4.5 mmol/L (3.5-5.1)
[2024-04-15 12:09] LABS: BILIRUBIN,DIRECT 0.5 mg/dL (0.0-0.5); TOTAL PROTEIN 6.7 g/dL (6.5-8.1)
[2024-04-15] MEDS: INSULIN GLARGINE 100 UNITS/ML VIAL SQ SCH (17:06)
[2024-04-16] VITALS (11 sets, daily range): BP systolic 132–145; BP diastolic 52–69; PULSE 77–84; RESP 17–20; TEMP 97.9–98.8; O2SAT 94–99
[2024-04-16] MEDS ORDERED: BENZONATATE100 MG PO (05:32)
[2024-04-16] MEDS ORDERED: NIFEDIPINE ER30 M1 PO (05:32)
[2024-04-16] MEDS ORDERED: Insulin Glargine SQ (05:32)
[2024-04-16] MEDS ORDERED: SENNA S TABLET1 EACH PO (05:32)
[2024-04-16] MEDS ORDERED: PANTOPRAZOLE SO40 MG PO (05:32)
[2024-04-16] MEDS ORDERED: GABAPENTIN100 MG PO (05:32)
[2024-04-16] MEDS: PSYLLIUM 6GM PACKET PO SCH (12:16)
[2024-04-17] VITALS (7 sets, daily range): BP systolic 136–149; BP diastolic 62–72; PULSE 75–82; RESP 18–20; TEMP 97.4–98.3; O2SAT 95–98
[2024-04-17] MEDS ORDERED: HYDROCODON-ACE1 EAC9 PO (12:06)
[2024-04-17] MEDS ORDERED: LEVOTHYROXINE125 MC1 PO (12:06)
== END 2024-04-17 15:01 | disposition home health service (06) | DRG 871 ==
LOC: ER 15:30 → ERHOLD 19:13 → ICU 20:22 → MED/SURG2 04-09 11:49
PROVIDERS: ADMIT Internal Medicine; ATTEND Internal Medicine
PROC: 3E0333Z Introduction of Anti-inflammatory into Peripheral Vein, Percutaneous Approach (ICD-10-PCS; 2024-03-31)
PROC: 4A133R1 Monitoring of Arterial Saturation, Peripheral, Percutaneous Approach (ICD-10-PCS; principal; 2024-04-01)
PROC: 0F9430Z Drainage of Gallbladder with Drainage Device, Percutaneous Approach (ICD-10-PCS; 2024-04-01)
PROC: 0T9B70Z Drainage of Bladder with Drainage Device, Via Natural or Artificial Opening (ICD-10-PCS; 2024-04-01)
PROC: 3E033XZ Introduction of Vasopressor into Peripheral Vein, Percutaneous Approach (ICD-10-PCS; 2024-04-01)
PROC: 02HV33Z Insertion of Infusion Device into Superior Vena Cava, Percutaneous Approach (ICD-10-PCS; 2024-04-01)
PROC: 3E0336Z Introduction of Nutritional Substance into Peripheral Vein, Percutaneous Approach (ICD-10-PCS; 2024-04-04)
PROC: 02H633Z Insertion of Infusion Device into Right Atrium, Percutaneous Approach (ICD-10-PCS; 2024-04-06)
DX: A41.51 Sepsis due to Escherichia coli [E. coli] (principal); K85.10 Biliary acute pancreatitis without necrosis or infection; R65.21 Severe sepsis with septic shock; I82.621 Acute embolism and thrombosis of deep veins of right upper extremity; E44.0 Moderate protein-calorie malnutrition; K80.12 Calculus of gallbladder with acute and chronic cholecystitis without obstruction; N17.9 Acute kidney failure, unspecified; B17.9 Acute viral hepatitis, unspecified; Z68.41 Body mass index [BMI] 40.0-44.9, adult; I16.0 Hypertensive urgency; E66.01 Morbid (severe) obesity due to excess calories; E11.22 Type 2 diabetes mellitus with diabetic chronic kidney disease; I12.9 Hypertensive chronic kidney disease with stage 1 through stage 4 chronic kidney disease, or unspecified chronic kidney disease; N18.9 Chronic kidney disease, unspecified; E11.42 Type 2 diabetes mellitus with diabetic polyneuropathy; Z11.52 Encounter for screening for COVID-19; E83.42 Hypomagnesemia; E03.9 Hypothyroidism, unspecified; E87.6 Hypokalemia; I78.8 Other diseases of capillaries; R53.81 Other malaise; R74.01 Elevation of levels of liver transaminase levels; M25.512 Pain in left shoulder; R11.2 Nausea with vomiting, unspecified; Z79.84 Long term (current) use of oral hypoglycemic drugs; Z79.890 Hormone replacement therapy
CPT/HCPCS: 36415; 36556; 36569; 36600; 49405; 71045; 74177; 74181; 74470; 76705; 76937; 76942; 77001; 80048; 80053; 80061; 80076; 81001; 81015; 82150; 82550; 82570; 82805; 82948; 83036; 83605; 83690; 83735; 83880; 84100; 84156; 84443; 84484; 85025; 85610; 85730; 86704; 86706; 87040; 87070; 87071; 87086; 87186; 87205; 87340; 93005; 93971; 94640; 94799; 96372; 99252; 99284; C1729; C1769; J0360; J0690; J1171; J1644; J1650; J1815; J1940; J2003; J2150; J2270; J2405; J2470; J2543; J2765; J3475; J3480; J7030; J7050; Q9967

== ENCOUNTER → 2024-04-29 | Outpatient (REF) | payer MEDICARE ==
[~2024-04-29] MED LIST changes: +BENZONATATE100 MG PO; +GABAPENTIN100 MG PO; +HYDROCODON-ACE1 EAC9 PO; +Insulin Glargine SQ; +LEVOTHYROXINE125 MC1 PO; +NIFEDIPINE ER30 M1 PO; +PANTOPRAZOLE SO40 MG PO; +SENNA S TABLET1 EACH PO
== END ==
LOC: RAD 14:21
PROVIDERS: ATTEND Internal Medicine
DX: R05.9 Cough, unspecified (principal)
CPT/HCPCS: 71046

== ENCOUNTER → 2024-05-22 | Day surgery (SDC) | payer MEDICARE ==
[2024-05-19 14:41] LABS: BASOPHILS % 0.5 % (0.0-1.0); EOSINOPHILS # (AUTO) 0.3 (0.0-0.4); EOSINOPHILS % 5.7 % (0.0-6.0); HEMATOCRIT 32.9 % (34.2-44.1); LYMPHOCYTES # (AUTO) 1.4 (1.0-3.2); LYMPHOCYTES % 22.5 % (18.0-39.1); MEAN CORPUSCULAR HEMOGLOBIN 30.1 pg (28-32); MEAN CORPUSCULAR HGB CONC 33.4 g/dL (31-35); MEAN CORPUSCULAR VOLUME 90.1 fL (81-99); MONOCYTES # (AUTO) 0.2 (0.2-0.8); MONOCYTES % 3.7 % (4.4-11.3); NEUTROPHILS # (AUTO) 4.1 (2.1-6.9); NEUTROPHILS % 67.4 % (38.7-80.0); PLATELET COUNT 200 x10e3/uL (140-360); RED BLOOD COUNT 3.65 x10e6/uL (3.6-5.1); RED CELL DISTRIBUTION WIDTH 14.1 % (11.7-14.4)
[2024-05-19 15:06] LABS: ALBUMIN 3.9 g/dL (3.5-5.0); ANION GAP 15.1 mmol/L (8-16); CALCIUM 9.6 mg/dL (8.4-10.2); CREATININE, SERUM 0.96 mg/dL (0.57-1.11); POTASSIUM 4.1 mmol/L (3.5-5.1); TOTAL PROTEIN 7.9 g/dL (6.5-8.1)
[~2024-05-22] MED LIST changes: +ACETAMINOPHEN 1000 MG/100 ML 100 ML IV ONE; +DEXAMETHASONE SOD PHOS INJ 4 MG/ML SDV ONE; +DEXMEDETOMIDINE HCL 2 ML ONE; +FAMOTIDINE 20 MG/2 ML VIAL IV ONE; +FENTANYL CITRATE/PF 100MCG/2 ML INJ ONE; +LACTATED RINGER'S 1,000 ML ONE; +LANTUS 3ML100 UNITS/ SQ; +LIDOCAINE HCL 2% LOCAL INJ 5 ML SDV VIAL INJ ONE; +ONDANSETRON HCL INJ 2MG/ML 2ML 2 MG/ML VIAL ONE; +PROPOFOL IV EMULSION 10 MG/ML 20 ML VIAL ONE; +ROCURONIUM BROMIDE 1 ML IV ONE; +SEVOFLURANE INHAL SOLN 250 ML PEN BTL ONE; +SODIUM CHLORIDE 0.9% 100 ML ONE; +SUGAMMADEX SODIUM 200 MG/2 ML VIAL IV ONE
[2024-05-22] MEDS: FENTANYL CITRATE/PF 100MCG/2 ML INJ ONE (10:33)
[2024-05-22] MEDS: HYDROCODONE/APAP 7.5MG-325MG 1 EA TAB ONE (11:03)
[2024-05-22] MEDS: ONDANSETRON HCL INJ 2MG/ML 2ML 2 MG/ML VIAL ONE (11:10)
[2024-05-22] MEDS: METOCLOPRAMIDE HCL 10 MG/2ML VIAL ONE (11:40)
[2024-05-22] MEDS: SCOPOLAMINE 1 MG PATCH ONE (12:10)
[2024-05-22 12:25] VITALS: BP 151/75; PULSE 76; RESP 16; O2SAT 98
== END | disposition home or self-care (01) ==
LOC: OR 06:25
PROVIDERS: ATTEND Surgery
DX: K80.00 Calculus of gallbladder with acute cholecystitis without obstruction (principal); K43.6 Other and unspecified ventral hernia with obstruction, without gangrene; I10 Essential (primary) hypertension; E10.9 Type 1 diabetes mellitus without complications; E03.9 Hypothyroidism, unspecified; E66.01 Morbid (severe) obesity due to excess calories; K21.9 Gastro-esophageal reflux disease without esophagitis; Z01.812 Encounter for preprocedural laboratory examination; Z79.4 Long term (current) use of insulin; Z79.899 Other long term (current) drug therapy; Z98.890 Other specified postprocedural states
CPT/HCPCS: 36415 ×2; 47562; 80053; 82948; 85025; 88304; C1766; J0131; J1100; J2003; J2405; J2704; J2765; J3010; J7050; J7121

== ENCOUNTER → 2024-07-27 | Outpatient (REF) | payer MEDICARE ==
[~2024-07-27] MED LIST changes: -ACETAMINOPHEN 1000 MG/100 ML 100 ML IV ONE; -DEXAMETHASONE SOD PHOS INJ 4 MG/ML SDV ONE; -DEXMEDETOMIDINE HCL 2 ML ONE; -FAMOTIDINE 20 MG/2 ML VIAL IV ONE; -FENTANYL CITRATE/PF 100MCG/2 ML INJ ONE; -LACTATED RINGER'S 1,000 ML ONE; -LIDOCAINE HCL 2% LOCAL INJ 5 ML SDV VIAL INJ ONE; -ONDANSETRON HCL INJ 2MG/ML 2ML 2 MG/ML VIAL ONE; -PROPOFOL IV EMULSION 10 MG/ML 20 ML VIAL ONE; -ROCURONIUM BROMIDE 1 ML IV ONE; -SEVOFLURANE INHAL SOLN 250 ML PEN BTL ONE; -SODIUM CHLORIDE 0.9% 100 ML ONE; -SUGAMMADEX SODIUM 200 MG/2 ML VIAL IV ONE
== END ==
LOC: MAMMO 14:34
PROVIDERS: ATTEND Internal Medicine
DX: Z12.31 Encounter for screening mammogram for malignant neoplasm of breast (principal); Z13.820 Encounter for screening for osteoporosis
CPT/HCPCS: 77067; 77080

== ENCOUNTER 2024-12-03 06:58 | Observation (INO) | payer MEDICARE ==
[2024-11-26 12:57] LABS: BASOPHILS % 0.2 % (0.0-1.0); EOSINOPHILS % 1.0 % (0.0-6.0); LYMPHOCYTES % 23.1 % (18.0-39.1); MONOCYTES % 5.3 % (4.4-11.3); NEUTROPHILS % 70.2 % (38.7-80.0); RED CELL DISTRIBUTION WIDTH 12.7 % (11.7-14.4)
[2024-11-26 13:23] LABS: EST GLOMERULAR FILTRATION RATE 85.0 ML/MIN (>=60)
[~2024-12-03] VITALS: Ht 170.2 cm; Wt 113.9 kg
[~2024-12-03 06:58] MED LIST changes: +GLIPIZIDE5 MG PO; +HYDROCHLOROTHIA25 MG PO; +METFORMIN HCL850 MG PO; +MULTI-VITAMIN1 EACH PO
[2024-12-03] MEDS ORDERED: PROPOFOL IV EMULSION 10 MG/ML 20 ML VIAL ONE (08:33)
[2024-12-03] MEDS ORDERED: FENTANYL CITRATE/PF 100MCG/2 ML INJ ONE (08:33)
[2024-12-03] MEDS ORDERED: LIDOCAINE HCL 2% LOCAL INJ 5 ML SDV VIAL INJ ONE (08:33)
[2024-12-03] MEDS ORDERED: ROCURONIUM BROMIDE 1 ML IV ONE (09:27)
[2024-12-03] MEDS: LACTATED RINGER'S 1,000 ML ONE (09:28)
[2024-12-03] MEDS ORDERED: SUGAMMADEX SODIUM 200 MG/2 ML VIAL IV ONE (10:00)
[2024-12-03] MEDS ORDERED: ACETAMINOPHEN 1000 MG/100 ML 100 ML IV ONE (10:30)
[2024-12-03] MEDS ORDERED: ACETAMINOPHEN 1000 MG/100 ML IV PRN (11:00)
[2024-12-03] MEDS ORDERED: ONDANSETRON HCL INJ 2MG/ML 2ML 2 MG/ML VIAL IV PRN (11:00)
[2024-12-03] MEDS ORDERED: HYDROCODONE/APAP 7.5MG-325MG 1 EA TAB PO PRN (11:00)
[2024-12-03 12:00] VITALS: BP 143/65; PULSE 69; RESP 18; TEMP 97.6; O2SAT 100
[2024-12-03] MEDS: ROPIVACAINE 246.25 MG, EPINEPHRINE HCL 1:1000 1ML 0.5 MG, CLONIDINE HCL 0.08 MG, KETORO... INJ ONE (12:57)
[2024-12-03] MEDS: SODIUM CHLORIDE 0.9% 1000ML 1,000 ML IV SCH (12:58)
[2024-12-03 13:23] VITALS: BP 143/65; PULSE 69; RESP 18; TEMP 97.6; O2SAT 100
[2024-12-03 13:26] VITALS: BP 143/65; PULSE 69; RESP 18; TEMP 97.6; O2SAT 100
[2024-12-03 16:00] VITALS: BP 153/72; PULSE 72; RESP 18; TEMP 98.1; O2SAT 98
[2024-12-03 20:00] VITALS: BP 163/80; PULSE 68; RESP 20; TEMP 97.9; O2SAT 98
[2024-12-03] MEDS ORDERED: SEVOFLURANE INHAL SOLN 250 ML PEN BTL ONE (22:05)
[2024-12-03] MEDS: HYDROMORPHONE 1MG/1ML INJ IV PRN (23:27)
[2024-12-03 23:39] VITALS: BP 153/72; PULSE 72; RESP 18; TEMP 98.1; O2SAT 98
[2024-12-04 05:20] LABS: BASOPHILS % 0.2 % (0.0-1.0); EOSINOPHILS % 0.8 % (0.0-6.0); LYMPHOCYTES % 15.7 % (18.0-39.1); MONOCYTES % 5.3 % (4.4-11.3); NEUTROPHILS % 77.7 % (38.7-80.0); RED CELL DISTRIBUTION WIDTH 12.6 % (11.7-14.4)
[2024-12-04 05:51] LABS: EST GLOMERULAR FILTRATION RATE 84.0 ML/MIN (>=60)
[2024-12-04 08:00] VITALS: BP 153/69; PULSE 66; RESP 17; TEMP 98; O2SAT 97
[2024-12-04 08:27] VITALS: BP 153/69; PULSE 66; RESP 17; TEMP 98; O2SAT 97
[2024-12-04 12:00] VITALS: BP 131/77; PULSE 64; RESP 18; TEMP 97.7; O2SAT 97
== END 2024-12-04 16:11 | disposition home or self-care (01) ==
LOC: OR 06:58 → PACU V 12:07 → MED/SURG 12:18
PROVIDERS: ADMIT Surgery; ATTEND Surgery
DX: K43.6 Other and unspecified ventral hernia with obstruction, without gangrene (principal); I10 Essential (primary) hypertension; E11.9 Type 2 diabetes mellitus without complications; Z79.84 Long term (current) use of oral hypoglycemic drugs; Z01.810 Encounter for preprocedural cardiovascular examination; Z01.812 Encounter for preprocedural laboratory examination
CPT/HCPCS: 36415 ×3; 49594; 80048 ×2; 82948 ×2; 85025 ×2; 88302; 93005; C1781; G0378 ×2; J0131; J0169; J0690 ×2; J1171; J1885; J2003; J2704; J2795; J3010; J7030 ×2; J7121